=== PATIENT | male | born 1975 | race Caucasian/White ===

== ENCOUNTER 2018-02-14 18:24 | Emergency (ER) | payer OTHER ==
[~2018-02-14] VITALS: Ht 170.2 cm; Wt 66.1 kg
[2018-02-14 18:31] VITALS: BP 118/76
[2018-02-14] MEDS ORDERED: DEXAMETHASONE 4 MG TABLET ONE (18:57)
[2018-02-14] MEDS ORDERED: DEXAMETHASONE 4 MG TABLET PO ONE (19:00)
[2018-02-14] MEDS ORDERED: AMOXICILLIN 500 MG CAPSULE PO ONE (19:00)
[2018-02-14] MEDS ORDERED: ACETAMINOPHEN 325 MG TABLET PO ONE (19:00)
[2018-02-14] MEDS ORDERED: DEXAMETHASONE 4 MG/ML, 1ML IM ONE (19:00)
== END 2018-02-14 20:01 | disposition home or self-care (01) ==
LOC: ED 19:55
DX: J03.00 Acute streptococcal tonsillitis, unspecified (principal)
CPT/HCPCS: 99284